=== PATIENT | female | born 1990 | race Caucasian/White ===

== ENCOUNTER 2017-08-09 09:45 | Emergency (ER) | payer OTHER | END 2017-08-09 11:02 | disposition home or self-care (01) | LOC: E/R 09:45 | DX: J02.8 Acute pharyngitis due to other specified organisms (principal); J06.9 Acute upper respiratory infection, unspecified; B97.89 Other viral agents as the cause of diseases classified elsewhere; Z87.891 Personal history of nicotine dependence | CPT/HCPCS: 99283; Z7502 ==

== ENCOUNTER 2017-12-21 06:11 | Emergency (ER) | payer OTHER ==
[2017-12-21] MEDS: predniSONE 20 MG TAB PO (06:52)
[2017-12-21] MEDS: DIPHENHYDRAMINE 25 MG CAP PO (06:52)
== END 2017-12-21 07:26 | disposition home or self-care (01) ==
LOC: FTE 06:11
DX: L50.9 Urticaria, unspecified (principal); F17.210 Nicotine dependence, cigarettes, uncomplicated
CPT/HCPCS: 99283; J7512

== ENCOUNTER 2017-12-25 12:42 | Emergency (ER) | payer OTHER | END 2017-12-25 15:19 | disposition home or self-care (01) | LOC: FTE 12:42 | DX: R21 Rash and other nonspecific skin eruption (principal); F17.210 Nicotine dependence, cigarettes, uncomplicated | CPT/HCPCS: 99282; Z7502 ==

== ENCOUNTER 2018-03-12 16:11 | Emergency (ER) | payer OTHER | END 2018-03-12 21:03 | disposition home or self-care (01) | LOC: FTE 16:11 | DX: S49.91XA Unspecified injury of right shoulder and upper arm, initial encounter (principal); F17.210 Nicotine dependence, cigarettes, uncomplicated; Y04.8XXA Assault by other bodily force, initial encounter | CPT/HCPCS: 73030; 73030-RT; 73060-RT; 99283-25 ==